=== PATIENT | male | born 1945 | race Caucasian/White ===

== ENCOUNTER → 2019-01-02 | Outpatient (CLI) | payer MEDICARE | END | disposition home or self-care (01) | LOC: PMGWOUND 09:28 | PROVIDERS: ATTEND Preventive Medicine Undersea and Hyperbaric Medicine | DX: I87.311 Chronic venous hypertension (idiopathic) with ulcer of right lower extremity (principal); L97.811 Non-pressure chronic ulcer of other part of right lower leg limited to breakdown of skin; I87.322 Chronic venous hypertension (idiopathic) with inflammation of left lower extremity; E78.5 Hyperlipidemia, unspecified; I73.9 Peripheral vascular disease, unspecified; H91.90 Unspecified hearing loss, unspecified ear; K21.9 Gastro-esophageal reflux disease without esophagitis; N40.1 Benign prostatic hyperplasia with lower urinary tract symptoms; E66.01 Morbid (severe) obesity due to excess calories; Z68.41 Body mass index [BMI] 40.0-44.9, adult; Z86.718 Personal history of other venous thrombosis and embolism | CPT/HCPCS: 99203; 99213; G0463 ==

== ENCOUNTER → 2019-02-06 | Outpatient (CLI) | payer MEDICARE ==
--- NOTE | 2019-02-06 14:26 | RAD ---
Bilateral lower extremity ABIs without comparison for nonhealing ulcer of the right calf, edema. FINDINGS: The LIDA on the right is 1.41 and on the left 1.41. These are consistent with noncompressibility and are nondiagnostic. IMPRESSION: 1. Abnormal LIDA suggestive of diffuse arterial calcification and noncompressibility. Electronically signed by: Marcio Smith MD (02/06/2019 2:23 PM) [facility]
--- NOTE | 2019-02-06 14:38 | RAD ---
Bilateral lower extremity arterial duplex ultrasound study without comparison for edema, nonhealing right leg ulcer. TECHNIQUE AND FINDINGS: Real-time grayscale and color and spectral Doppler evaluation of the bilateral lower extremity arterial tree is performed. On the right, there is multifocal atherosclerosis. Flow is triphasic in the common femoral artery as well as the mid and distal superficial femoral artery, but is biphasic in the proximal superficial femoral artery, and becomes monophasic and hyperdynamic within the popliteal and proximal posterior tibial artery. Flow is monophasic in the distal posterior tibial and dorsalis pedis arteries. There is significant velocity elevation in the mid posterior tibial artery suggesting hemodynamically significant stenosis at this level. The anterior tibial artery is not identified. On the left, again there is multifocal atherosclerosis. There is triphasic flow to left common femoral, superficial femoral, and popliteal arteries, with biphasic flow in the proximal posterior tibial artery and monophasic flow in the distal posterior tibial artery. Hyperdynamic monophasic flow seen within the dorsalis pedis artery. Flow in the peroneal artery is triphasic. Once again the anterior tibial artery is not identified. No focal velocity aberrations are evident to suggest localizable stenosis. IMPRESSION: 1. Multifocal atherosclerosis in all distributions with abnormal runoff waveforms, suggesting decreased flow particularly within the posterior tibial arterial distributions bilaterally. There is a localizable hemodynamically significant stenosis in the mid right posterior tibial artery. Anterior tibial arteries are not seen. Electronically signed by: Marcio Smith MD (02/06/2019 2:36 PM) [facility]
--- NOTE | 2019-02-07 12:25 | RAD ---
VENOUS REFLUX BILATERAL History: Nonhealing ulcer of the right calf Comparison: None. Findings: Multiple grayscale duplex spectral masses waveform images of the lower extremity veins bilaterally are submitted. There is reflux of the greater saphenous veins bilaterally extending from the level of the groin to the ankle. Proximal right greater saphenous vein was 1.1 seconds, measured 1 cm. Proximal left greater saphenous vein was 1.1 seconds, measured 1.2 cm. No significant reflux was demonstrated of the lesser saphenous veins although there is thrombus in the lesser saphenous veins bilaterally greater on the right. Calf perforators were not demonstrated. Impression: 1. There is reflux of the greater saphenous veins bilaterally. 2. There is no significant reflux of the lesser saphenous veins although thrombus bilaterally greater on the right. Electronically signed by: Artem Adair MD (02/07/2019 12:22 PM) [facility] [place]
== END | disposition home or self-care (01) ==
LOC: US 09:56
PROVIDERS: ATTEND Preventive Medicine Undersea and Hyperbaric Medicine
DX: I82.813 Embolism and thrombosis of superficial veins of lower extremities, bilateral (principal); I70.293 Other atherosclerosis of native arteries of extremities, bilateral legs; L97.219 Non-pressure chronic ulcer of right calf with unspecified severity; R60.9 Edema, unspecified; R29.2 Abnormal reflex
CPT/HCPCS: 93922; 93925; 93970

== ENCOUNTER → 2019-04-21 | Outpatient (CLI) | payer MEDICARE ==
[~2019-04-21] VITALS: Ht 182.9 cm; Wt 153.3 kg
[~2019-04-21] MED LIST: APIX5TAB PO; ATOR40TA59 PO; CARV3.12 PO; FURO-69 PO; HEPARIN for ARTERIAL LINE 1,500 ML ONE; IODIXANOL 320 MG/ML 100 ML VIAL. ONE; ISOS30TA4 PO; LIDOCAINE 1% Multi-Dose 20 ML VIAL. ONE; LISI-334 PO; PANT20TA2 PO; arthritis tylenol PO
[2019-04-21 07:42] LABS: HEMATOCRIT 43.3 % (39.0-53.0); HEMOGLOBIN 14.5 g/dL (13.0-17.5); RED BLOOD COUNT 5.04 x10^6/uL (4.30-5.70); RED CELL DISTRIBUTION WIDTH 16.2 % (11.5-14.5); WHITE BLOOD COUNT 6.2 x10^3/uL (4.0-11.0)
[2019-04-21 07:51] LABS: PROTHROMBIN TIME PATIENT 14.6 SEC (11.7-14.0)
[2019-04-21 07:56] LABS: CALCIUM 9.3 mg/dL (8.5-10.1); CREATININE 1.1 mg/dL (0.7-1.3); GFR 65.3
[2019-04-21 08:58] VITALS: BP 159/78
--- NOTE | 2019-04-21 10:12 | RAD ---
MR#: [id number] Date of Study: 04/21/2019 Ordering Physician: ARELY PALAFOX, Referring Physician: ARELY PALAFOX, Tech: Prakash Bowles MBA, RDMS, RVT, RDCS, RTR APPROVED REPORT Bilateral Lower Extremity Venous Study for DVT Patient Location: OUT-PATIENT Vein Imaging (Right) CFV (R): Compressible SFJ (R): Compressible FEM (R): Compressible POP (R): Compressible DFV (R): Compressible PTV (R): Spontaneous Peroneals (R): not visualized Vein Imaging (Left) CFV (L): Compressible SFJ (L): Compressible FEM (L): Compressible POP (L): Compressible DFV (L): Compressible PTV (L): Spontaneous Peroneals (L): not visualized Doppler Evaluation (Right) CFV (R): Spontaneous POP (R):Spontaneous Doppler Evaluation (Left) CFV (L):Spontaneous POP (L):Spontaneous Findings Technically very difficult study due to body habitus. Grossly the bilateral common femoral veins and proximal superficial femoral veins appear to be compre ssible on conn scale images. The mid to distal superficial femoral veins are not well visualized. The popliteal veins appear to be compressible. Below-knee veins were not well visualized and there is sp ontaneous flow noted on spectral imaging. Spectral and color Doppler imaging of the deep veins above the knee are grossly unremarkable. Critical Notification Critical Value: No <Conclusion> 1. Technically difficult study but otherwise no gross evidence of DVT. Signed by : Arely Palafox, Electronically Approved : 04/21/2019 10:11:49
--- NOTE | 2019-04-21 11:03 | NUR ---
pt did not hold his blood thinners as the instructions left on his voice mail said to. so his procedure is rescheduled for May 05. instructions written down and reviewed multiple times with pt and his .
--- NOTE | 2019-04-21 12:19 | CARD ---
MR#: [id number] Date of Study: 04/21/2019 Ordering Physician: ARELY MOLINA, Referring Physician: ARELY MOLINA, Tech: Hilary Lindo APPROVED REPORT EXAM: Two-dimensional and M-mode echocardiogram with Doppler and color Doppler. Other Information Quality : FairHR: 50bpm Technically limited study due to body habitus and smoking. INDICATION Dyspnea RISK FACTORS Hypertension Hyperlipidemia Smoking 2D DIMENSIONS RVDd3.3 (2.9-3.5cm)Left Atrium(2D)3.2 (1.6-4.0cm) IVSd1.2 (0.7-1.1cm)Aortic Root(2D)3.9 (2.0-3.7cm) LVDd6.0 (3.9-5.9cm)LVOT Diameter2.1 (1.8-2.4cm) PWd1.4 (0.7-1.1cm)LVDs3.5 (2.5-4.0cm) FS (%) 41.3 %SV129.5 ml LVEF(%)71.3 (>50%) Aortic Valve AoV Peak Renny.186.1cm/sAoV VTI44.9cm AO Peak GR.13.8mmHgLVOT Peak Renny.120.9cm/s LVOT VTI 32.86cmAO Mean GR.6mmHg RANJIT (VMAX)1.69bx4HCN (VTI)2.55cm2 Mitral Valve MV E Ajebuzlx50.6cm/sMV DECEL ZHTE121uy MV A Dfjyswhl30.5cm/sMV ODW07ul E/A Ratio0.9MVA (PHT)2.62cm2 TDI E/Lateral E'8.6E/Medial E'8.3 Pulmonary Valve PV Peak Ncdnqiod769.8cm/sPV Peak Grad.5mmHg Tricuspid Valve TR P. Itvqovps674bd/sRAP ZDUIAQWM9fdOt TR Peak Gr.07udSmAFCT60faKc Pulmonary Vein S1 Gjmquuqg93.5cm/sD2 Peitphya42.9cm/s PVa tlchotmz197zade LEFT VENTRICLE The Left Ventricle is mildly dilated. There is mild to moderate concentric left ventricular hypertrop hy. The left ventricular systolic function is normal and the ejection fraction is within normal range . The Ejection Fraction is 50-55%. There is normal LV segmental wall motion. Transmitral Doppler flow pattern is Grade I-abnormal relaxation pattern. RIGHT VENTRICLE The right ventricle is normal size. There is normal right ventricular wall thickness. The right ventr icular systolic function is normal. ATRIA The left atrium is moderately dilated. The right atrium is mildly dilated. The interatrial septum is intact with no evidence for an atrial septal defect or patent foramen ovale as noted on 2-D or Dopple r imaging. AORTIC VALVE The aortic valve is calcified but opens well. Doppler and Color Flow revealed no significant aortic r egurgitation. There is no significant aortic valvular stenosis. MITRAL VALVE The mitral valve is normal in structure and function. There is no evidence of mitral valve prolapse. There is no mitral valve stenosis. Doppler and Color Flow revealed no mitral valve regurgitation note d. TRICUSPID VALVE The tricuspid valve is normal in structure and function. Doppler and Color Flow revealed no tricuspid valve regurgitation noted with an estimated PAP of 37 mmHg. There is no tricuspid valve stenosis. PULMONIC VALVE The pulmonic valve is not well visualized. Doppler and Color Flow revealed no pulmonic valvular regur gitation. There is no pulmonic valvular stenosis. GREAT VESSELS The aortic root is normal in size. The IVC is dilated and collapses >50% with inspiration. PERICARDIAL EFFUSION There is no evidence of significant pericardial effusion. Critical Notification Critical Value: No <Conclusion> The left ventricular systolic function is normal and the ejection fraction is within normal range. Th e Ejection Fraction is 50-55%. There is normal LV segmental wall motion. Signed by : Arely Molina, Electronically Approved : 04/21/2019 12:18:30
== END ==
LOC: CCL 07:01
PROVIDERS: ATTEND Internal Medicine Cardiovascular Disease
DX: I51.7 Cardiomegaly (principal)
CPT/HCPCS: 36415; 80048; 83880; 85027; 85610; 93306; 93970

== ENCOUNTER 2019-05-05 07:44 | Outpatient (CLI) | payer MEDICARE ==
[2019-05-05] VITALS (13 sets, daily range): BP systolic 168–199; BP diastolic 80–112
[~2019-05-05] VITALS: Ht 182.9 cm; Wt 153.3 kg
[~2019-05-05 07:44] MED LIST changes: -HEPARIN for ARTERIAL LINE 1,500 ML ONE; -IODIXANOL 320 MG/ML 100 ML VIAL. ONE; -LIDOCAINE 1% Multi-Dose 20 ML VIAL. ONE
[2019-05-05] MEDS ORDERED: HEPARIN for ARTERIAL LINE 1,500 ML ONE (07:47)
[2019-05-05] MEDS ORDERED: LIDOCAINE 1% Multi-Dose 20 ML VIAL. ONE (07:47)
[2019-05-05] MEDS ORDERED: IODIXANOL 320 MG/ML 100 ML VIAL. ONE (07:47)
[2019-05-05] MEDS ORDERED: OMEP20TA63 PO (08:08)
[2019-05-05 08:22] LABS: HEMATOCRIT 46.2 % (39.0-53.0); HEMOGLOBIN 15.5 g/dL (13.0-17.5); RED BLOOD COUNT 5.37 x10^6/uL (4.30-5.70); RED CELL DISTRIBUTION WIDTH 16.1 % (11.5-14.5); WHITE BLOOD COUNT 7.1 x10^3/uL (4.0-11.0)
[2019-05-05 08:32] LABS: PROTHROMBIN TIME PATIENT 13.3 SEC (11.7-14.0)
[2019-05-05 08:33] LABS: CALCIUM 9.8 mg/dL (8.5-10.1); CREATININE 1.2 mg/dL (0.7-1.3); POTASSIUM 4.2 mmol/L (3.5-5.1)
[2019-05-05] MEDS ORDERED: MIDAZOLAM HCL/PF 2 MG/2 ML VIAL. ONE (09:11)
[2019-05-05] MEDS ORDERED: fentaNYL PF VIAL 100 MCG/2 ML VIAL ONE (09:11)
[2019-05-05] MEDS ORDERED: NITROGLYCERIN 200 MCG/2 ML SYRINGE FOR CATH/VASC LAB. ONE (09:12)
[2019-05-05] MEDS ORDERED: HEPARIN for IV BOLUS 10,000 UNIT/10 ML VIAL. ONE (09:12)
[2019-05-05] MEDS ORDERED: VERAPAMIL 5 MG/2 ML VIAL. ONE (09:12)
[2019-05-05] MEDS ORDERED: VERAPAMIL 5 MG/2 ML VIAL. IART ONE (10:30)
[2019-05-05] MEDS ORDERED: HEPARIN for IV BOLUS 10,000 UNIT/10 ML VIAL. IART ONE (10:30)
[2019-05-05] MEDS ORDERED: MIDAZOLAM HCL/PF 2 MG/2 ML VIAL. IV ONE (10:30)
[2019-05-05] MEDS ORDERED: LIDOCAINE 1% Multi-Dose 20 ML VIAL. INJ ONE (10:30)
[2019-05-05] MEDS ORDERED: fentaNYL PF VIAL 100 MCG/2 ML VIAL IV ONE (10:30)
[2019-05-05] MEDS ORDERED: IODIXANOL 320 MG/ML 100 ML VIAL. IART ONE (10:30)
[2019-05-05] MEDS ORDERED: NITROGLYCERIN 200 MCG/2 ML SYRINGE FOR CATH/VASC LAB. IART ONE (10:30)
[2019-05-05] MEDS ORDERED: hydrALAZINE 20 MG/ML VIAL. IVP ONE (11:30)
--- NOTE | 2019-05-05 11:42 | CARD ---
MR#: [id number] Date of Study: 05/05/2019 Ordering Physician: BRONSON PALAFOX, Referring Physician: BRONSON PALAFOX, Tech: Stevie Kan RT (R) APPROVED REPORT Patient StatusOUT-PATIENT Pyrometer Operator: Stevie Kan RT (R) Procedure(s) performed: Sedation Time: 80 Minutes Dose: 347 Gycm2 Fluoro Time: 8 Minutes Contrast: 81 mL Visipaque 320 RHC, Abdominal aortogram with bilateral run-off HISTORY The patient is a 73 year-old male with a history of : hypertension, dyslipidemia, morbid obesity with bilateral chronic venous stasis disease with normal LV function presented to the laboratory geneticist to rule ou t pulmonary HTN and to evaluate volume status with a RHC. He also was noted to have bilateral lower e xtremity arterial disease on doppler ultrasound and therefore presented for definitive evaluation of angiographic disease. . INDICATION FOR PROCEDURE The indication(s) include : Bilateral claudication. CASE TECHNIQUE After explaining the risks, benefits, and alternative options, informed consent was obtained from the patient. During this case, Fluoroscopy and low osmolar contrast were used for imaging. PROCEDURE NARRATIVE After appropriate informed consent the right neck and the left radial artery area were prepped and dr aped in usual sterile fashion. Right heart catheterization: Under ultrasound guidance with lidocaine anesthesia a 8 [place] sheath was placed in the right interna l jugular vein. Next, a 7.5 [place] PA catheter was advanced to the right heart chambers and pressures and saturations were obtained. Findings: Right Atrium: 5 mmHg Right ventricle: 15/5 PA: 15/10 PCWP: 8 mm Hg CO: 6.7 L/min TD and 7.1 L/min by Darling PA sat: 75% FA sat: 98%. Attention was then turned to the abdominal aortogram and runoff. Left radial arterial access was obtained using the Seldinger technique and a 6 [place] sheath was plac ed. Subsequent only, a 5 [place] pigtail catheter was placed in the mid abdominal aorta and an aortogr am with bilateral runoff was performed. Subsequent only, due to technically limited images a selectiv e engagement of the bilateral common iliac arteries was made with a Vert catheter. Bilateral runoff w as then again performed. 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 No significant stenos is is identified Right and left common iliac arteries do not reveal any significant disease Bilateral internal iliac arteries are not well visualized Bilateral common femoral arteries do not have any significant disease Bilateral superficial femoral arteries do not have any significant disease The right anterior tibial artery is occluded and the patient has 2 vessel runoff to the foot There is three-vessel runoff in the left lower extremity with moderate disease involving the left ant erior tibial artery and peroneal artery. No focal high-grade stenosis is identified. At case completion the right internal jugular sheath and the left side radial sheath was removed and hemostasis was obtained with manual compression on the vein and a radial band on the wrist. There wer e no acute competitions. Conclusion 1. Normal biventricular filling pressures. 2. Normal cardiac output 3. No significant above knee disease on aortic angiography 4. Bilateral 2 vessel runoff below the knee. Recommendations Aggressive Medical Therapy Weight Loss Reduction Program Signed by : Bronson Palafox, Electronically Approved : 05/05/2019 11:42:13
--- NOTE | 2019-05-05 14:03 | NUR ---
Discharge Note: CARL LEROY Discharge instructions and discharge home medications reviewed with Spouse and a copy given. All questions have been answered and understanding verbalized. Patient ate lunch without difficulties. The following instructions and handouts were given: Moderate sedation, transradial site care, blood pressure management and blood pressure log. Discontinued lines and drains: left hand PIV, dressing clean dry intact. Arm[place] in place to left hand/wrist, dressing clean dry intact. Patient discharged to home with via wheelchair to private vehicle.
== END 2019-05-05 13:50 | disposition home or self-care (01) ==
LOC: CCL 07:44
PROVIDERS: ATTEND Internal Medicine Cardiovascular Disease
DX: I70.213 Atherosclerosis of native arteries of extremities with intermittent claudication, bilateral legs (principal)
CPT/HCPCS: 36245; 36415; 75716; 76937; 80048; 85027; 85610; 93451; C1769; C1773; C1892; J0360; J1644; J2250; J3010; J3490; Q9967; 75625; 75630; 99152; 99153